=== PATIENT | male | born 1965 | race Caucasian/White ===

== ENCOUNTER 2020-03-28 11:22 | Observation (INO) ==
[2020-03-28] MEDS ORDERED: Isovue-370 500 ML BOTTLE IVP ONE (11:52)
[2020-03-28 12:15] LABS: Basophils % 0.2 %; Eosinophils # 0.1 K/mcL (0.0-0.6); Eosinophils % 0.6 %; Hematocrit 38.6 % (37.5-50.1); Hemoglobin 12.9 g/dL (12.9-16.9); Immature Granulocytes % 0.2 % (0-4); Lymphocytes # 0.9 K/mcL (0.6-4.6); Lymphocytes % 10.7 %; Mean Corpuscular HGB Conc 33.4 g/dL (31.6-35.5); Mean Corpuscular Hemoglobin 33.3 pg (28.0-33.3); Mean Corpuscular Volume 99.7 fL (83.0-100.0); Mean Platelet Volume 11.5 fL (9.4-12.4); Monocytes # 0.7 K/mcL (0.0-1.3); Neutrophils # 6.6 K/mcL (1.6-8.9); Platelet Count 174 K/mcL (140-400); Red Blood Count 3.87 M/mcL (4.19-5.50); Red Cell Distribution Width 13.6 % (11.5-14.5); Segmented Neutrophils % 80.3 %; White Blood Count 8.2 K/mcL (4.3-11.1)
[2020-03-28 12:25] LABS: INR 1.3; Prothrombin Time 15.1 Seconds (9.4-12.1)
[2020-03-28 12:28] LABS: Bilirubin,Urine Small (Negative); Blood,Urine Moderate (Negative); Clarity,Urine Clear (Clear); Color,Urine Yellow (Yellow); Glucose,Urine (UA) Normal (Normal); Ketones,Urine Negative (Negative); Leukocyte Esterase,Urine Negative (Negative); Nitrite,Urine Negative (Negative); PH,Urine 5.5 pH Units (5.0-8.0); Protein,Urine 30 mg/dL (Neg-Trace); Specific Gravity,Urine >= 1.030 (1.010-1.025); Urobilinogen,Urine Normal (Normal)
[2020-03-28 12:28] LABS: Activated Partial Thrombo Time 33.4 Seconds (26.0-36.0)
[2020-03-28 12:35] LABS: Bacteria,Urine Few per hpf (None-Few); RBC,Urine 0-3 per hpf (0-3); Squamous Epithelial Cell,Urine Few per hpf (None-Few); WBC,Urine 0-3 per hpf (0-3)
[2020-03-28 12:39] LABS: Alanine Aminotransferase 30 Units/L (7-52); Albumin 3.4 g/dL (3.5-5.7); Albumin/Globulin Ratio 1.1 (1.1-2.2); Alkaline Phosphatase 131 Units/L (34-104); Aspartate Amino Transferase 23 Units/L (13-39); BUN/Creatinine Ratio 18 (6-26); Bilirubin,Direct 0.2 mg/dL (0.0-0.2); Bilirubin,Indirect 0.3 mg/dL (0.0-1.0); Bilirubin,Total 0.5 mg/dL (0.3-1.0); Blood Urea Nitrogen 15 mg/dL (6-20); Calcium 8.8 mg/dL (8.6-10.3); Carbon Dioxide 26 mEq/L (23-29); Chloride 106 mEq/L (98-107); Glucose 116 mg/dL (70-105); Lipase 28 Units/L (11-82); Osmolality,Calculated 294 (280-300); Potassium 3.3 mEq/L (3.5-5.1); Sodium 141 mEq/L (136-145); Total Protein 6.4 g/dL (6.4-8.9); Troponin I < 0.03 ng/mL (< 0.04); eGFR For African Americans > 60 (> 60); eGFR For Non-African Americans > 60 (> 60)
[2020-03-28] MEDS ORDERED: *HR* FentaNYL (PF) 100 MCG/2 ML VIAL IVP ONE (13:52)
[2020-03-28] MEDS ORDERED: Naloxone 0.4 MG/ML INJ IVP PRN (14:22)
[2020-03-28] MEDS ORDERED: *HR* HYDROmorphone 2 MG/ML SYRINGE IVP PRN (19:00)
[2020-03-28] MEDS ORDERED: Ondansetron 4 MG/2 ML VIAL IVP PRN (20:12)
[2020-03-28] MEDS: *HR* HYDROmorphone 2 MG/ML SYRINGE IVP PRN (21:27)
[2020-03-29] MEDS: *HR* HYDROmorphone 2 MG/ML SYRINGE IVP PRN ×4 (07:57→21:38)
[2020-03-29 08:43] LABS: BUN/Creatinine Ratio 33 (6-26); Blood Urea Nitrogen 27 mg/dL (6-20); Calcium 8.6 mg/dL (8.6-10.3); Carbon Dioxide 35 mEq/L (23-29); Chloride 102 mEq/L (98-107); Glucose 152 mg/dL (70-105); Osmolality,Calculated 308 (280-300); Potassium 3.3 mEq/L (3.5-5.1); Sodium 145 mEq/L (136-145); eGFR For African Americans > 60 (> 60); eGFR For Non-African Americans > 60 (> 60)
[2020-03-29] MEDS: Potassium Chloride Elixir 20 MEQ/15 ML UDC PO SCH ×2 (15:24→21:52)
[2020-03-29 16:03] LABS: Source of Body Fluid Ascites
[2020-03-29 18:23] LABS: Appearance of Body Fluid Clear (Clear); Volume of Body Fluid 60 mL
[2020-03-30 04:51] LABS: Basophils % 0.1 %; Hematocrit 35.9 % (37.5-50.1); Immature Granulocytes % 0.4 % (0-4); Lymphocytes # 0.5 K/mcL (0.6-4.6); Lymphocytes % 3.8 %; Mean Corpuscular HGB Conc 33.4 g/dL (31.6-35.5); Mean Corpuscular Hemoglobin 34.4 pg (28.0-33.3); Mean Corpuscular Volume 102.9 fL (83.0-100.0); Mean Platelet Volume 11.8 fL (9.4-12.4); Monocytes # 1.1 K/mcL (0.0-1.3); Monocytes % 8.4 %; Platelet Count 156 K/mcL (140-400); Red Blood Count 3.49 M/mcL (4.19-5.50); Red Cell Distribution Width 13.7 % (11.5-14.5); Segmented Neutrophils % 87.3 %
[2020-03-30 05:00] LABS: Neutrophils # 11.4 K/mcL (1.6-8.9)
[2020-03-30 05:06] LABS: BUN/Creatinine Ratio 42 (6-26); Blood Urea Nitrogen 37 mg/dL (6-20); Carbon Dioxide 40 mEq/L (23-29); Chloride 97 mEq/L (98-107); Glucose 170 mg/dL (70-105); Osmolality,Calculated 311 (280-300); Potassium 3.9 mEq/L (3.5-5.1); Sodium 144 mEq/L (136-145); eGFR For African Americans > 60 (> 60); eGFR For Non-African Americans > 60 (> 60)
[2020-03-30 05:59] LABS: VBG HCO3 41 mEq/L (21-27); VBG PCO2 57 mmHg (41-51); VBG PH 7.47 pH Units (7.32-7.42); VBG PO2 80 mmHg (25-50)
[2020-03-30] MEDS: Potassium Chloride Elixir 20 MEQ/15 ML UDC PO SCH ×2 (08:23→09:05)
[2020-03-30] MEDS: *HR* HYDROmorphone 2 MG/ML SYRINGE IVP PRN (09:14)
[2020-03-30] MEDS ORDERED: 0.9 % Sodium Chloride 1,000 ML IVC ONE (11:35)
[2020-03-30 12:05] LABS: Hematocrit 33.9 % (37.5-50.1); Hemoglobin 11.1 g/dL (12.9-16.9); Mean Corpuscular HGB Conc 32.7 g/dL (31.6-35.5); Mean Corpuscular Hemoglobin 33.7 pg (28.0-33.3); Mean Platelet Volume 11.7 fL (9.4-12.4); Platelet Count 144 K/mcL (140-400); Red Blood Count 3.29 M/mcL (4.19-5.50); Red Cell Distribution Width 13.5 % (11.5-14.5); White Blood Count 12.6 K/mcL (4.3-11.1)
[2020-03-30 13:50] LABS: Hematocrit 34.1 % (37.5-50.1); Hemoglobin 10.7 g/dL (12.9-16.9); Mean Corpuscular HGB Conc 31.4 g/dL (31.6-35.5); Mean Corpuscular Hemoglobin 32.7 pg (28.0-33.3); Mean Corpuscular Volume 104.3 fL (83.0-100.0); Mean Platelet Volume 11.6 fL (9.4-12.4); Platelet Count 165 K/mcL (140-400); Red Blood Count 3.27 M/mcL (4.19-5.50); Red Cell Distribution Width 13.8 % (11.5-14.5); White Blood Count 13.1 K/mcL (4.3-11.1)
[2020-03-30 14:51] LABS: Lymphocytes # 1.1 K/mcL (0.6-4.6); Monocytes # 0.8 K/mcL (0.0-1.3); Neutrophils # 11.3 K/mcL (1.6-8.9)
[2020-03-30 14:52] LABS: Platelet Estimate Normal (Normal)
[2020-03-30 16:02] VITALS: BP 92/70
[2020-03-31 23:26] LABS: Fluid Source for Albumin PERITON/ASCITES
== END 2020-03-30 17:03 | disposition home health service (06) ==
LOC: EMEROOARM 11:22 → 3ANU 11:22
PROVIDERS: ADMIT Internal Medicine; ATTEND Internal Medicine

== ENCOUNTER 2020-04-03 18:08 | Inpatient (IN) ==
[2020-04-03 23:15] LABS: Adenovirus Not Detected (Not Detect); Coronavirus 229E Not Detected (Not Detect); Coronavirus HKU1 Not Detected (Not Detect); Coronavirus NL63 Not Detected (Not Detect); Coronavirus OC43 Not Detected (Not Detect); Human Metapneumovirus Not Detected (Not Detect); Human Rhinovirus/Enterovirus Not Detected (Not Detect); Influenza A Subtype 2009 H1 Not Detected (Not Detect)
[2020-04-03 23:16] LABS: Bordetella Pertussis Not Detected (Not Detect); Chlamydophila pneumoniae Not Detected (Not Detect); Influenza B Not Detected (Not Detect); Mycoplasma pneumoniae Not Detected (Not Detect); Parainfluenza Virus 1 Not Detected (Not Detect); Parainfluenza Virus 2 Not Detected (Not Detect); Parainfluenza Virus 3 Not Detected (Not Detect); Parainfluenza Virus 4 Not Detected (Not Detect); Respiratory Syncytial Virus Not Detected (Not Detect); SARS-CoV-2 Not Detected (Not Detect)
[2020-04-03] MEDS ORDERED: Ondansetron 4 MG/2 ML VIAL IVP PRN (23:33)
[2020-04-03] MEDS ORDERED: Naloxone 0.4 MG/ML INJ IVP PRN (23:33)
[2020-04-04] MEDS: Pantoprazole 40 MG in 0.9 % Sodium Chloride Mini Bag 100 ML IVC SCH ×5 (00:04→21:28)
[2020-04-04] MEDS ORDERED: GI Cocktail 40 ML EACH PO ONE (00:20)
[2020-04-04 00:31] LABS: Basophils % 0.4 %; Eosinophils % 0.2 %; Hematocrit 23.1 % (37.5-50.1); Immature Granulocytes % 2.5 % (0-4); Lymphocytes # 0.9 K/mcL (0.6-4.6); Lymphocytes % 11.6 %; Mean Corpuscular HGB Conc 33.8 g/dL (31.6-35.5); Mean Corpuscular Hemoglobin 32.5 pg (28.0-33.3); Mean Platelet Volume 10.6 fL (9.4-12.4); Monocytes # 0.9 K/mcL (0.0-1.3); Nucleated Red Blood Cells 1.9 /100 WBC (0); Platelet Count 141 K/mcL (140-400); Red Cell Distribution Width 14.6 % (11.5-14.5); Segmented Neutrophils % 74.3 %; White Blood Count 8.1 K/mcL (4.3-11.1)
[2020-04-04 00:33] LABS: Hemoglobin 7.8 g/dL (12.9-16.9); Mean Corpuscular Volume 96.3 fL (83.0-100.0)
[2020-04-04] MEDS ORDERED: Ringers Solution, Lactated 1,000 ML IVC SCH (01:15)
[2020-04-04] MEDS ORDERED: 0.9 % Sodium Chloride 500 ML ONE (02:46)
[2020-04-04 05:19] LABS: Basophils % 0.5 %; Eosinophils % 0.1 %; Hematocrit 28.4 % (37.5-50.1); Immature Granulocytes % 2.9 % (0-4); Lymphocytes # 0.9 K/mcL (0.6-4.6); Lymphocytes % 11.6 %; Mean Corpuscular HGB Conc 34.2 g/dL (31.6-35.5); Mean Corpuscular Hemoglobin 33.2 pg (28.0-33.3); Mean Corpuscular Volume 97.3 fL (83.0-100.0); Mean Platelet Volume 10.8 fL (9.4-12.4); Monocytes # 0.9 K/mcL (0.0-1.3); Monocytes % 11.4 %; Neutrophils # 5.8 K/mcL (1.6-8.9); Platelet Count 114 K/mcL (140-400); Red Blood Count 2.92 M/mcL (4.19-5.50); Red Cell Distribution Width 14.2 % (11.5-14.5); Segmented Neutrophils % 73.5 %; White Blood Count 7.9 K/mcL (4.3-11.1)
[2020-04-04 05:21] LABS: Hemoglobin 9.7 g/dL (12.9-16.9)
[2020-04-04 05:23] LABS: INR 1.5; Prothrombin Time 17.3 Seconds (9.4-12.1)
[2020-04-04 05:25] LABS: VBG Ionized Calcium 1.01 mmol/L (1.15-1.35)
[2020-04-04 05:37] LABS: Alanine Aminotransferase 17 Units/L (7-52); Albumin 2.5 g/dL (3.5-5.7); Albumin/Globulin Ratio 1.1 (1.1-2.2); Alkaline Phosphatase 67 Units/L (34-104); Aspartate Amino Transferase 19 Units/L (13-39); BUN/Creatinine Ratio 36 (6-26); Bilirubin,Direct 0.1 mg/dL (0.0-0.2); Bilirubin,Indirect 0.4 mg/dL (0.0-1.0); Bilirubin,Total 0.5 mg/dL (0.3-1.0); Blood Urea Nitrogen 37 mg/dL (6-20); Calcium 7.5 mg/dL (8.6-10.3); Carbon Dioxide 31 mEq/L (23-29); Chloride 103 mEq/L (98-107); Globulin 2.3 g/dL (2.4-3.5); Glucose 98 mg/dL (70-105); Magnesium 2.2 mg/dL (1.6-2.6); Osmolality,Calculated 299 (280-300); Phosphorous 3.3 mg/dL (2.7-4.5); Potassium 3.9 mEq/L (3.5-5.1); Sodium 140 mEq/L (136-145); Total Protein 4.8 g/dL (6.4-8.9); eGFR For African Americans > 60 (> 60); eGFR For Non-African Americans > 60 (> 60)
[2020-04-04] MEDS ORDERED: Calcium Gluconate 1gm/50mL 1 GM/50 ML BAG IVPB PRN (06:19)
[2020-04-04 10:15] LABS: Hematocrit 24.8 % (37.5-50.1); Hemoglobin 8.5 g/dL (12.9-16.9); Mean Corpuscular HGB Conc 34.3 g/dL (31.6-35.5); Mean Corpuscular Hemoglobin 33.6 pg (28.0-33.3); Mean Platelet Volume 10.6 fL (9.4-12.4); Red Blood Count 2.53 M/mcL (4.19-5.50)
[2020-04-04 10:17] LABS: Basophils % 0.3 %; Eosinophils % 0.2 %; Immature Granulocytes % 4.4 % (0-4); Immature Platelets 6.3 % (1.1-6.1); Lymphocytes # 0.6 K/mcL (0.6-4.6); Lymphocytes % 8.9 %; Monocytes # 0.7 K/mcL (0.0-1.3); Monocytes % 11.7 %; Neutrophils # 4.6 K/mcL (1.6-8.9); Nucleated Red Blood Cells 2.4 /100 WBC (0); Platelet Count 118 K/mcL (140-400); Red Cell Distribution Width 14.7 % (11.5-14.5); Segmented Neutrophils % 74.5 %; White Blood Count 6.2 K/mcL (4.3-11.1)
[2020-04-04 10:34] LABS: BUN/Creatinine Ratio 34 (6-26); Blood Urea Nitrogen 32 mg/dL (6-20); Calcium 7.6 mg/dL (8.6-10.3); Carbon Dioxide 31 mEq/L (23-29); Chloride 102 mEq/L (98-107); Glucose 89 mg/dL (70-105); Osmolality,Calculated 292 (280-300); Sodium 138 mEq/L (136-145); eGFR For African Americans > 60 (> 60); eGFR For Non-African Americans > 60 (> 60)
[2020-04-04] MEDS ORDERED: Ondansetron 4 MG/2 ML VIAL IVP PRN (14:23)
[2020-04-04] MEDS ORDERED: Naloxone 0.4 MG/ML INJ IVP PRN (14:23)
[2020-04-04 16:09] LABS: Hematocrit 27.1 % (37.5-50.1); Hemoglobin 8.7 g/dL (12.9-16.9)
[2020-04-04 23:56] LABS: Hematocrit 24.6 % (37.5-50.1); Hemoglobin 8.3 g/dL (12.9-16.9)
[2020-04-05] MEDS ORDERED: D5% in Water 1,000 ML IVC PRN (01:04)
[2020-04-05] MEDS ORDERED: Dextrose Gel 15 GM/37.5 ML TUBE PO PRN ×2 (01:04)
[2020-04-05] MEDS: *HR* Dextrose 50 % in Water (Vial) 50 ML VIAL IVP PRN ×2 (01:17→11:48)
[2020-04-05] MEDS: Pantoprazole 40 MG in 0.9 % Sodium Chloride Mini Bag 100 ML IVC SCH ×3 (03:01→11:49)
[2020-04-05 03:33] LABS: Hematocrit 24.5 % (37.5-50.1); Hemoglobin 8.2 g/dL (12.9-16.9)
[2020-04-05 03:35] LABS: BUN/Creatinine Ratio 36 (6-26); Blood Urea Nitrogen 31 mg/dL (6-20); Calcium 7.8 mg/dL (8.6-10.3); Carbon Dioxide 27 mEq/L (23-29); Chloride 102 mEq/L (98-107); Glucose 85 mg/dL (70-105); Osmolality,Calculated 288 (280-300); Potassium 3.7 mEq/L (3.5-5.1); Sodium 136 mEq/L (136-145); eGFR For African Americans > 60 (> 60); eGFR For Non-African Americans > 60 (> 60)
[2020-04-05 09:32] LABS: Hematocrit 28.1 % (37.5-50.1); Hemoglobin 9.3 g/dL (12.9-16.9)
[2020-04-05 09:40] LABS: INR 1.3; Prothrombin Time 15.1 Seconds (9.4-12.1)
[2020-04-05 09:52] LABS: % Iron Saturation 9 % (20-55); Iron 20 mcg/dL (65-175); Transferrin 166 mg/dL (203-362)
[2020-04-05 10:10] LABS: Ferritin 270 ng/mL (20-250)
[2020-04-05 10:14] LABS: Folate 10.1 ng/mL (3.0-16.0)
[2020-04-05] MEDS: Ringers Solution, Lactated 1,000 ML IVC SCH (10:58)
[2020-04-05] MEDS ORDERED: *HR* Propofol 200 MG/20 ML VIAL IVP ONE (12:53)
[2020-04-05] MEDS ORDERED: 0.9 % Sodium Chloride 500 ML IVC SCH (13:45)
[2020-04-05] MEDS ORDERED: D5% in Water 250 ML ONE (13:46)
[2020-04-05] MEDS ORDERED: D5% in 0.9% NACL 1,000 ML IVC ONE (13:47)
[2020-04-05] MEDS ORDERED: Fluconazole 40 MG/ML UDC PO ONE (14:15)
[2020-04-05 16:52] LABS: Hematocrit 30.4 % (37.5-50.1)
[2020-04-05] MEDS: Pantoprazole 40 MG VIAL IVP SCH (17:11)
[2020-04-06] MEDS: Ringers Solution, Lactated 1,000 ML IVC SCH (01:54)
[2020-04-06 02:44] LABS: Hematocrit 26.5 % (37.5-50.1); Immature Granulocytes % 0.9 % (0-4); Immature Platelets 7.3 % (1.1-6.1); Lymphocytes # 0.3 K/mcL (0.6-4.6); Lymphocytes % 5.6 %; Mean Corpuscular Hemoglobin 33.1 pg (28.0-33.3); Mean Corpuscular Volume 97.4 fL (83.0-100.0); Mean Platelet Volume 10.9 fL (9.4-12.4); Monocytes # 0.5 K/mcL (0.0-1.3); Monocytes % 11.1 %; Neutrophils # 3.9 K/mcL (1.6-8.9); Nucleated Red Blood Cells 0.6 /100 WBC (0); Platelet Count 148 K/mcL (140-400); Red Blood Count 2.72 M/mcL (4.19-5.50); Red Cell Distribution Width 15.9 % (11.5-14.5); Segmented Neutrophils % 82.4 %; White Blood Count 4.7 K/mcL (4.3-11.1)
[2020-04-06 02:45] LABS: INR 1.3
[2020-04-06 02:59] LABS: BUN/Creatinine Ratio 28 (6-26); Blood Urea Nitrogen 28 mg/dL (6-20); Calcium 7.9 mg/dL (8.6-10.3); Carbon Dioxide 26 mEq/L (23-29); Chloride 101 mEq/L (98-107); Glucose 167 mg/dL (70-105); Osmolality,Calculated 289 (280-300); Sodium 135 mEq/L (136-145); eGFR For African Americans > 60 (> 60); eGFR For Non-African Americans > 60 (> 60)
[2020-04-06] MEDS: Pantoprazole 40 MG VIAL IVP SCH (05:50)
[2020-04-06 07:58] VITALS: BP 106/70
[2020-04-06] MEDS ORDERED: Fluconazole 40 MG/ML UDC PO SCH (09:00)
[2020-04-06] MEDS ORDERED: Iron Sucrose Complex 200 MG in 0.9 % Sodium Chloride 100 ML IVPB SCH (09:00)
[2020-04-06 12:03] LABS: Appearance of Peritoneal Fl CLEAR (Clear)
[2020-04-06 12:06] LABS: RBC,Peritoneal Fluid < 2000 RBC/mcL
[2020-04-06 12:18] LABS: Amylase,Peritoneal Fluid 22 Units/L (No Ref Range); Glucose,Peritoneal Fluid 150 mg/dL (No Ref Range); LDH,Peritoneal Fluid < 25 Units/L (No Ref Range); Total Protein,Peritoneal Fluid < 3.0 g/dL
[2020-04-06 15:13] LABS: Basophils,Peritoneal Fluid 0 %; Eosinophils,Peritoneal Fluid 0 %
== END 2020-04-06 12:02 | disposition home or self-care (01) | DRG 241 ==
LOC: CDU → ICNU 23:18 → SUATTDRO 23:33 → 3ANU 04-04 14:22
PROVIDERS: ADMIT Internal Medicine; ATTEND Internal Medicine

== ENCOUNTER 2020-04-28 12:04 | Inpatient (IN) ==
[2020-04-28] MEDS ORDERED: Isovue-370 500 ML BOTTLE IVP ONE (12:23)
[2020-04-28] MEDS ORDERED: 0.9 % Sodium Chloride 1,000 ML IVC ONE ×2 (12:27→18:03)
[2020-04-28 12:53] LABS: Mean Platelet Volume 11.1 fL (9.4-12.4); Monocytes % 5.3 %; Nucleated Red Blood Cells 0.3 /100 WBC (0)
[2020-04-28 12:55] LABS: Basophils % 0.3 %; Hematocrit 33.5 % (37.5-50.1); Immature Granulocytes % 0.6 % (0-4); Immature Platelets 7.3 % (1.1-6.1); Lymphocytes # 1.1 K/mcL (0.6-4.6); Lymphocytes % 15.6 %; Mean Corpuscular HGB Conc 32.8 g/dL (31.6-35.5); Mean Corpuscular Hemoglobin 31.7 pg (28.0-33.3); Mean Corpuscular Volume 96.5 fL (83.0-100.0); Monocytes # 0.4 K/mcL (0.0-1.3); Neutrophils # 5.3 K/mcL (1.6-8.9); Red Blood Count 3.47 M/mcL (4.19-5.50); Red Cell Distribution Width 14.8 % (11.5-14.5); Segmented Neutrophils % 78.2 %; White Blood Count 6.8 K/mcL (4.3-11.1)
[2020-04-28 13:25] LABS: Alanine Aminotransferase 27 Units/L (7-52); Albumin 2.4 g/dL (3.5-5.7); Albumin/Globulin Ratio 0.7 (1.1-2.2); Alkaline Phosphatase 120 Units/L (34-104); Aspartate Amino Transferase 25 Units/L (13-39); BUN/Creatinine Ratio 32 (6-26); Bilirubin,Direct 0.1 mg/dL (0.0-0.2); Bilirubin,Indirect 0.4 mg/dL (0.0-1.0); Bilirubin,Total 0.5 mg/dL (0.3-1.0); Blood Urea Nitrogen 30 mg/dL (6-20); Calcium 8.4 mg/dL (8.6-10.3); Carbon Dioxide 32 mEq/L (23-29); Chloride 96 mEq/L (98-107); Globulin 3.4 g/dL (2.4-3.5); Glucose 121 mg/dL (70-105); Lipase 42 Units/L (11-82); Osmolality,Calculated 297 (280-300); Potassium 3.5 mEq/L (3.5-5.1); Sodium 140 mEq/L (136-145); Total Protein 5.8 g/dL (6.4-8.9); Troponin I < 0.03 ng/mL (< 0.04); eGFR For African Americans > 60 (> 60); eGFR For Non-African Americans > 60 (> 60)
[2020-04-28 14:02] LABS: Platelet Count 92 K/mcL (140-400)
[2020-04-28] MEDS ORDERED: *HR* FentaNYL (PF) 100 MCG/2 ML VIAL IVP ONE ×2 (14:26→15:49)
[2020-04-28] MEDS ORDERED: 0.9 % Sodium Chloride 500 ML IV ONE (14:59)
[2020-04-28] MEDS ORDERED: *HR* Promethazine 25 MG/ML VIAL IVP PRN (15:27)
[2020-04-28] MEDS ORDERED: Naloxone 0.4 MG/ML INJ IVP PRN (15:27)
[2020-04-28] MEDS ORDERED: Prochlorperazine 10 MG/2 ML VIAL IVP PRN (16:14)
[2020-04-28 17:14] LABS: Bilirubin,Urine Negative (Negative); Blood,Urine Small (Negative); Clarity,Urine Clear (Clear); Color,Urine Yellow (Yellow); Glucose,Urine (UA) Normal (Normal); Ketones,Urine Negative (Negative); Leukocyte Esterase,Urine Negative (Negative); Mucus,Urine Few per lpf (None-Few); Nitrite,Urine Negative (Negative); PH,Urine 5.5 pH Units (5.0-8.0); Protein,Urine Trace mg/dL (Neg-Trace); RBC,Urine 15-30 per hpf (0-3); Specific Gravity,Urine > 1.030 (1.010-1.025); Squamous Epithelial Cell,Urine Few per hpf (None-Few); Urobilinogen,Urine Normal (Normal)
[2020-04-28] MEDS: Albumin 25% 25gram/100mL 25 GM/100 ML IV.SOLN IVPB SCH (17:43)
[2020-04-28] MEDS: Ondansetron 4 MG/2 ML VIAL IVP SCH ×2 (20:11→23:22)
[2020-04-28] MEDS: Pantoprazole 40 MG VIAL IVP SCH (20:11)
[2020-04-28] MEDS: 0.9 % Sodium Chloride 1,000 ML IVC SCH (23:16)
[2020-04-28] MEDS: *HR* HYDROmorphone (PF) 1 MG/ML SYRINGE IVP PRN (23:31)
[2020-04-29 02:07] LABS: Basophils % 0.2 %; Mean Platelet Volume 11.6 fL (9.4-12.4); Nucleated Red Blood Cells 0.3 /100 WBC (0)
[2020-04-29 02:09] LABS: Hematocrit 25.4 % (37.5-50.1); Hemoglobin 8.1 g/dL (12.9-16.9); Immature Granulocytes % 0.8 % (0-4); Immature Platelets 8.3 % (1.1-6.1); Mean Corpuscular HGB Conc 31.9 g/dL (31.6-35.5); Mean Corpuscular Hemoglobin 32.1 pg (28.0-33.3); Mean Corpuscular Volume 100.8 fL (83.0-100.0); Monocytes # 0.3 K/mcL (0.0-1.3); Monocytes % 5.1 %; Red Blood Count 2.52 M/mcL (4.19-5.50); Red Cell Distribution Width 15.1 % (11.5-14.5); Segmented Neutrophils % 78.9 %; White Blood Count 6.5 K/mcL (4.3-11.1)
[2020-04-29 02:10] LABS: Neutrophils # 5.1 K/mcL (1.6-8.9); Platelet Count 70 K/mcL (140-400)
[2020-04-29 02:25] LABS: BUN/Creatinine Ratio 47 (6-26); Blood Urea Nitrogen 36 mg/dL (6-20); Calcium 7.4 mg/dL (8.6-10.3); Carbon Dioxide 30 mEq/L (23-29); Chloride 104 mEq/L (98-107); Glucose 105 mg/dL (70-105); Osmolality,Calculated 303 (280-300); Potassium 3.4 mEq/L (3.5-5.1); Sodium 142 mEq/L (136-145); eGFR For African Americans > 60 (> 60); eGFR For Non-African Americans > 60 (> 60)
[2020-04-29] MEDS ORDERED: Albumin 25% 25gram/100mL 25 GM/100 ML IV.SOLN ONE ×2 (06:01→09:44)
[2020-04-29] MEDS: Ondansetron 4 MG/2 ML VIAL IVP SCH ×4 (06:05→22:32)
[2020-04-29] MEDS: Albumin 25% 25gram/100mL 25 GM/100 ML IV.SOLN IVPB SCH ×4 (06:06→22:29)
[2020-04-29] MEDS: Pantoprazole 40 MG VIAL IVP SCH ×2 (06:06→17:02)
[2020-04-29] MEDS: 0.9 % Sodium Chloride 1,000 ML IVC SCH ×3 (09:17→22:37)
[2020-04-29 09:50] LABS: Hematocrit 20.1 % (37.5-50.1)
[2020-04-29 10:00] LABS: Hemoglobin 6.2 g/dL (12.9-16.9)
[2020-04-29] MEDS ORDERED: *HR* Propofol 500 MG/50 ML BOTTLE IVP ONE (10:52)
[2020-04-29] MEDS ORDERED: Lidocaine -MPF 2% 5 ML VIAL SQ ONE (10:52)
[2020-04-29] MEDS ORDERED: EPHEDrine 50 MG/ML VIAL IVP ONE (10:52)
[2020-04-29] MEDS: Iron Sucrose Complex 200 MG in 0.9 % Sodium Chloride 100 ML IVPB SCH (13:46)
[2020-04-29] MEDS ORDERED: Bisacodyl 10 MG RECTAL SUPPOSITORY RC PRN (14:44)
[2020-04-29] MEDS: Sennosides/Docusate Sodium TABLET PO SCH ×2 (20:07)
[2020-04-29] MEDS: *HR* HYDROmorphone (PF) 1 MG/ML SYRINGE IVP PRN (20:08)
[2020-04-30 03:28] LABS: Red Cell Distribution Width 16.2 % (11.5-14.5)
[2020-04-30 03:30] LABS: Hematocrit 23.2 % (37.5-50.1); Hemoglobin 7.8 g/dL (12.9-16.9); Immature Platelets 9.3 % (1.1-6.1); Mean Corpuscular HGB Conc 33.6 g/dL (31.6-35.5); Mean Corpuscular Hemoglobin 32.2 pg (28.0-33.3); Mean Corpuscular Volume 95.9 fL (83.0-100.0); Mean Platelet Volume 12.1 fL (9.4-12.4); Red Blood Count 2.42 M/mcL (4.19-5.50)
[2020-04-30 03:45] LABS: BUN/Creatinine Ratio 62 (6-26); Blood Urea Nitrogen 33 mg/dL (6-20); Carbon Dioxide 22 mEq/L (23-29); Chloride 108 mEq/L (98-107); Glucose 48 mg/dL (70-105); Magnesium 1.6 mg/dL (1.6-2.6); Osmolality,Calculated 284 (280-300); Potassium 3.8 mEq/L (3.5-5.1); Sodium 135 mEq/L (136-145); eGFR For African Americans > 60 (> 60); eGFR For Non-African Americans > 60 (> 60)
[2020-04-30] MEDS: Ondansetron 4 MG/2 ML VIAL IVP SCH ×4 (06:14→23:47)
[2020-04-30] MEDS: Pantoprazole 40 MG VIAL IVP SCH ×2 (06:14→20:14)
[2020-04-30] MEDS: Iron Sucrose Complex 200 MG in 0.9 % Sodium Chloride 100 ML IVPB SCH (07:36)
[2020-04-30] MEDS: Albumin 25% 25gram/100mL 25 GM/100 ML IV.SOLN IVPB SCH ×3 (07:37→23:46)
[2020-04-30] MEDS: Sennosides/Docusate Sodium TABLET PO SCH (07:38)
[2020-04-30 10:18] LABS: Hematocrit 25.4 % (37.5-50.1); Hemoglobin 8.4 g/dL (12.9-16.9)
[2020-04-30] MEDS ORDERED: *HR* Propofol 200 MG/20 ML VIAL IVP ONE ×2 (10:26→10:29)
[2020-04-30] MEDS ORDERED: Lidocaine -MPF 2% 2 ML VIAL ONE (10:26)
[2020-04-30] MEDS: Docusate Oral Soln 100 MG/10 ML UDC PO SCH (20:14)
[2020-05-01 02:11] LABS: Eosinophils % 0.5 %; Hemoglobin 7.3 g/dL (12.9-16.9); Immature Granulocytes % 0.5 % (0-4); Mean Corpuscular HGB Conc 33.2 g/dL (31.6-35.5); Mean Platelet Volume 11.5 fL (9.4-12.4)
[2020-05-01 02:13] LABS: Basophils % 0.5 %; Immature Platelets 9.4 % (1.1-6.1); Lymphocytes # 0.4 K/mcL (0.6-4.6); Lymphocytes % 21.2 %; Mean Corpuscular Hemoglobin 31.9 pg (28.0-33.3); Mean Corpuscular Volume 96.1 fL (83.0-100.0); Monocytes # 0.2 K/mcL (0.0-1.3); Monocytes % 8.1 %; Neutrophils # 1.4 K/mcL (1.6-8.9); Nucleated Red Blood Cells 1.5 /100 WBC (0); Red Blood Count 2.29 M/mcL (4.19-5.50); Red Cell Distribution Width 16.2 % (11.5-14.5); Segmented Neutrophils % 69.2 %
[2020-05-01 02:22] LABS: Platelet Count 80 K/mcL (140-400)
[2020-05-01 02:24] LABS: BUN/Creatinine Ratio 42 (6-26); Blood Urea Nitrogen 22 mg/dL (6-20); Calcium 8.1 mg/dL (8.6-10.3); Carbon Dioxide 21 mEq/L (23-29); Chloride 108 mEq/L (98-107); Glucose 75 mg/dL (70-105); Magnesium 1.6 mg/dL (1.6-2.6); Osmolality,Calculated 284 (280-300); Potassium 3.5 mEq/L (3.5-5.1); Sodium 136 mEq/L (136-145); eGFR For African Americans > 60 (> 60); eGFR For Non-African Americans > 60 (> 60)
[2020-05-01 02:45] LABS: Anisocytosis 1+ (Not Present); Platelet Estimate Decreased (Normal)
[2020-05-01] MEDS: Ondansetron 4 MG/2 ML VIAL IVP SCH ×4 (06:23→23:17)
[2020-05-01] MEDS: Pantoprazole 40 MG VIAL IVP SCH ×2 (06:23→18:02)
[2020-05-01] MEDS: Docusate Oral Soln 100 MG/10 ML UDC PO SCH ×2 (07:27→22:05)
[2020-05-01] MEDS: Albumin 25% 25gram/100mL 25 GM/100 ML IV.SOLN IVPB SCH ×3 (08:07→23:16)
[2020-05-01] MEDS ORDERED: 0.9 % Sodium Chloride 250 ML ONE (09:00)
[2020-05-01] MEDS: Iron Sucrose Complex 200 MG in 0.9 % Sodium Chloride 100 ML IVPB SCH (09:45)
[2020-05-01] MEDS ORDERED: *HR* Propofol 200 MG/20 ML VIAL IVP ONE (11:21)
[2020-05-01] MEDS ORDERED: Lidocaine -MPF 2% 2 ML VIAL ONE (11:25)
[2020-05-01] MEDS ORDERED: ceFAZolin 2,000 MG in Water for inj. (sterile) 20 ML IVP ONE (12:07)
[2020-05-01] MEDS ORDERED: Dexamethasone 4 MG/ML VIAL ONE (12:26)
[2020-05-01] MEDS ORDERED: *HR* Rocuronium Bromide 50 MG/5 ML VIAL ONE (12:26)
[2020-05-01] MEDS ORDERED: Ondansetron 4 MG/2 ML VIAL ONE (12:26)
[2020-05-01] MEDS ORDERED: *HR* FentaNYL (PF) 100 MCG/2 ML VIAL ONE (12:27)
[2020-05-01] MEDS ORDERED: *HR* Succinylcholine 200 MG/10 ML VIAL IVP ONE (12:27)
[2020-05-01] MEDS ORDERED: Lidocaine HCL 4 ML Topical Solution (Laryng-O-Jet Kit Sterile Pak) TP ONE (12:28)
[2020-05-01] MEDS ORDERED: *HR* PHENYLEPHRINE 1,000 MCG/10 ML SYRINGE IVP ONE ×3 (12:32→13:28)
[2020-05-01] MEDS ORDERED: *HR* HYDROmorphone PF 0.5 MG/0.5 ML SYRINGE IVP PRN (13:08)
[2020-05-01] MEDS ORDERED: Ondansetron 4 MG/2 ML VIAL IVP ONE ×2 (13:08→15:26)
[2020-05-01] MEDS ORDERED: Ringers Solution, Lactated 1,000 ML ONE (14:57)
[2020-05-01] MEDS ORDERED: Naloxone 0.4 MG/ML INJ IVP PRN (15:26)
[2020-05-01] MEDS ORDERED: Bisacodyl 10 MG RECTAL SUPPOSITORY RC PRN (15:26)
[2020-05-01] MEDS: ceFAZolin 2,000 MG in 0.9 % Sodium Chloride 100 ML IVPB SCH (22:16)
[2020-05-02 03:19] LABS: Hematocrit 30.4 % (37.5-50.1); Immature Granulocytes % 0.6 % (0-4); Lymphocytes # 0.5 K/mcL (0.6-4.6); Lymphocytes % 14.9 %; Mean Corpuscular HGB Conc 33.6 g/dL (31.6-35.5); Mean Corpuscular Hemoglobin 31.9 pg (28.0-33.3); Mean Platelet Volume 11.5 fL (9.4-12.4); Monocytes # 0.3 K/mcL (0.0-1.3); Monocytes % 8.7 %; Nucleated Red Blood Cells 0.6 /100 WBC (0); Platelet Count 129 K/mcL (140-400); Red Cell Distribution Width 15.9 % (11.5-14.5); Segmented Neutrophils % 75.8 %
[2020-05-02 03:21] LABS: Hemoglobin 10.2 g/dL (12.9-16.9); Neutrophils # 2.4 K/mcL (1.6-8.9); White Blood Count 3.1 K/mcL (4.3-11.1)
[2020-05-02 03:37] LABS: BUN/Creatinine Ratio 34 (6-26); Blood Urea Nitrogen 24 mg/dL (6-20); Calcium 8.7 mg/dL (8.6-10.3); Carbon Dioxide 22 mEq/L (23-29); Chloride 107 mEq/L (98-107); Glucose 158 mg/dL (70-105); Magnesium 1.7 mg/dL (1.6-2.6); Osmolality,Calculated 291 (280-300); Potassium 3.7 mEq/L (3.5-5.1); Sodium 137 mEq/L (136-145); eGFR For African Americans > 60 (> 60); eGFR For Non-African Americans > 60 (> 60)
[2020-05-02] MEDS: Pantoprazole 40 MG VIAL IVP SCH ×2 (04:58→17:03)
[2020-05-02] MEDS: ceFAZolin 2,000 MG in 0.9 % Sodium Chloride 100 ML IVPB SCH ×2 (04:59→11:56)
[2020-05-02] MEDS: Ondansetron 4 MG/2 ML VIAL IVP SCH ×3 (05:00→17:03)
[2020-05-02] MEDS: Docusate Oral Soln 100 MG/10 ML UDC PO SCH ×2 (07:59→21:29)
[2020-05-02] MEDS: Iron Sucrose Complex 200 MG in 0.9 % Sodium Chloride 100 ML IVPB SCH (08:01)
[2020-05-02] MEDS: Albumin 25% 25gram/100mL 25 GM/100 ML IV.SOLN IVPB SCH (08:01)
[2020-05-03] MEDS: Ondansetron 4 MG/2 ML VIAL IVP SCH ×5 (00:59→23:02)
[2020-05-03 02:34] LABS: Eosinophils % 0.3 %; Hemoglobin 11.4 g/dL (12.9-16.9); Immature Granulocytes % 0.6 % (0-4); Lymphocytes # 0.6 K/mcL (0.6-4.6); Lymphocytes % 16.1 %; Mean Corpuscular HGB Conc 33.5 g/dL (31.6-35.5); Mean Corpuscular Hemoglobin 32.2 pg (28.0-33.3); Mean Platelet Volume 10.8 fL (9.4-12.4); Monocytes # 0.4 K/mcL (0.0-1.3); Monocytes % 11.7 %; Neutrophils # 2.4 K/mcL (1.6-8.9); Platelet Count 172 K/mcL (140-400); Red Blood Count 3.54 M/mcL (4.19-5.50); Red Cell Distribution Width 16.4 % (11.5-14.5); Segmented Neutrophils % 71.3 %; White Blood Count 3.4 K/mcL (4.3-11.1)
[2020-05-03 02:53] LABS: BUN/Creatinine Ratio 32 (6-26); Blood Urea Nitrogen 20 mg/dL (6-20); Calcium 8.1 mg/dL (8.6-10.3); Carbon Dioxide 22 mEq/L (23-29); Chloride 106 mEq/L (98-107); Glucose 126 mg/dL (70-105); Magnesium 1.6 mg/dL (1.6-2.6); Osmolality,Calculated 282 (280-300); Potassium 3.7 mEq/L (3.5-5.1); Sodium 134 mEq/L (136-145); eGFR For African Americans > 60 (> 60); eGFR For Non-African Americans > 60 (> 60)
[2020-05-03] MEDS: Pantoprazole 40 MG VIAL IVP SCH ×2 (05:45→18:03)
[2020-05-03] MEDS: Iron Sucrose Complex 200 MG in 0.9 % Sodium Chloride 100 ML IVPB SCH (08:58)
[2020-05-03] MEDS: Docusate Oral Soln 100 MG/10 ML UDC PO SCH (08:58)
[2020-05-03] MEDS: polyethylene glycoL 3350 17 GM POWD.PACK PO SCH (12:05)
[2020-05-03] MEDS: GuaiFENesin Liq 200 MG/10 ML UDC GTUBE SCH ×3 (14:53→23:01)
[2020-05-04] MEDS ORDERED: Albumin 25% 25gram/100mL 25 GM/100 ML IV.SOLN IVPB ONE (05:32)
[2020-05-04] MEDS ORDERED: Ringers Solution, Lactated 500 ML IVC ONE (05:33)
[2020-05-04] MEDS: GuaiFENesin Liq 200 MG/10 ML UDC GTUBE SCH ×2 (05:51→11:53)
[2020-05-04] MEDS: Pantoprazole 40 MG VIAL IVP SCH (05:51)
[2020-05-04] MEDS: Ondansetron 4 MG/2 ML VIAL IVP SCH ×2 (06:00→11:52)
[2020-05-04 11:24] VITALS: BP 92/39
[2020-05-04] MEDS: polyethylene glycoL 3350 17 GM POWD.PACK PO SCH (11:53)
== END 2020-05-04 16:42 | disposition home health service (06) | DRG 850 ==
LOC: EMEROOARM 12:04 → 2ANU 12:04 → SUATTDRO 17:16 → 2NNU 18:06
PROVIDERS: ADMIT Internal Medicine; ATTEND Internal Medicine
PROC: ENDOEUS (2020-04-29 17:30)
PROC: ENDOEBX (2020-04-30 12:15)